=== PATIENT | male | born 1975 | race Two or more races ===

== ENCOUNTER 2018-08-16 14:03 | Emergency (ER) | payer MEDICAID ==
[~2018-08-16] VITALS: Ht 190.5 cm; Wt 72.6 kg
--- NOTE | 2018-08-16 14:22 | NUR ---
ED Nurse Note: Pt came into the ER w/ complaints of head and neck pain 10/ since last night. Pt states that he slipped and fell last night at 1999. Pt states that he hit his head on the pavement. Pt states that he called 911 last night but they did not bring him to the hospital. Pt denies being drunk or on drugs last night when the fall occured. A+O x4. Ambulatory.
[2018-08-16 14:24] VITALS: BP 96/60
[2018-08-16] MEDS ORDERED: Acetaminophen 500mg (ES) tab ORAL ONE (14:30)
[2018-08-16] MEDS ORDERED: Methocarbamol 500mg tab ORAL ONE (14:30)
--- NOTE | 2018-08-16 14:31 | Emergency Room Report ---
History of Present Illness General Chief Complaint: Multiple Trauma/Fall Source: Patient Present Illness HPI 42-year-old male patient presents the ER complaining of head and neck pain status post fall 1 day ago. Patient reports he was walking home last night when he slipped and fell and landed on his neck and head. Denies loss of consciousness, states he is unsure if he lost consciousness. Denies vomiting or vision changes. Denies focal neuro deficits. Denies fever, chest pain, shortness of breath. Reports pain with moving the neck. Denies pain rating down the arms. Denies other acute or aggravating symptoms. Denies syncope or dizziness prior to fall. Denies history of stroke. Allergies: Coded Allergies: KETOROLAC (Verified Allergy, Unknown, 08/16/18) MORPHINE (Verified Allergy, Unknown, 08/16/18) TRAMADOL (Verified Allergy, Unknown, 08/16/18) Patient History Past Medical History: see triage record Reviewed Nursing Documentation: PMH: Agreed; PSxH: Agreed Nursing Documentation-PMH Past Medical History: No History, Except For Review of Systems All Other Systems: negative except mentioned in HPI Physical Exam Vital Signs Date Time Temp Pulse Resp B/P (MAP) Pulse Ox O2 Delivery O2 Flow Rate FiO2 08/16/18 14:07 98.2 71 20 96/60 97 Room Air 08/16/18 14:24 98 Sp02 EP Interpretation: reviewed, normal General Appearance: well appearing, no apparent distress, alert, GCS 15, non- toxic Head: normocephalic, atraumatic, other - Negative love sign, negative raccoon eyes, no skull depression, no laceration Eyes: bilateral eye normal inspection, bilateral eye PERRL ENT: hearing grossly normal, normal pharynx, no angioedema, normal voice, uvula midline, moist mucus membranes Neck: full range of motion, other - no bony depression, tender Respiratory: lungs clear, normal breath sounds, no rhonchi, no respiratory distress, no accessory muscle use, no wheezing, speaking full sentences Cardiovascular #1: regular rate, rhythm, no edema Genitourinary: no CVA tenderness Musculoskeletal: back normal, digits/nails normal, gait/station normal, normal range of motion, non-tender Neurologic: alert, oriented x3, responsive, tubing mill setter III-XII nml as tested, motor strength/tone normal, sensory intact, cerebellar normal, normal gait, speech normal Psychiatric: mood/affect normal Skin: no rash Lymphatic: no adenopathy Medical Decision Making PA Attestation Dr. Vyas is my supervising Physician whom patient management has been discussed with. Diagnostic Impression: Primary Impression: Head injury Additional Impressions: Neck contusion Left maxillary sinusitis ER Course Pt presents to ED c/o head and neck pain status post fall. DDX considered but are not limited to laceration, abrasion, contusion, cellulitis, ICH, skull fracture, concussion, fracture, sprain, strain. VITAL SIGNS are WNL, patient is afebrile ER COURSE: No focal neuro deficits, cranial nerves intact as tested, negative love sign, negative Raccon eyes. CT neck negative CT head negative fo mass-effect, edema, or acute bleed, left maxillary sinusitis noted. Will provide patient with Claritin for sinus symptoms. Will discharge patient home with pain medication, muscle relaxant, lidocaine patch. Advised on rest, ice, heat. Instruct patient to continue to monitor for concussion symptoms. Avoid excessive screen time, return to ER immediately if experience loss consciousness , vision loss, intractable vomiting. Avoid drug use. Drink plenty of fluids. Patient OK for discharge to home. Patient resting comfortably, in no acute distress, nontoxic appearing. ER precautions given. DISCHARGE: At this time pt is stable for d/c to home. Patient resting comfortably, in no acute distress, nontoxic appearing, talking without difficulty. Will provide with patient care instructions and any necessary prescriptions. Patient to take medication as instructed. Care plan and follow-up instructions provided. Patient questions asked and answered. Patient reports understanding and agreement to treatment plan. Patient instructed to followup with PCP to discuss further treatment plan and ability to go to work, ER precautions given. Patient instructed to return to ER immediately for any new or worsening of symptoms. - Please note that this Emergency Department Report was dictated using [employer] campaign manager technology software, occasionally this can lead to erroneous entry secondary to interpretation by the dictation equipment. CT/MRI/US Diagnostic Results CT/MRI/US Diagnostic Results #1: Imaging Test Ordered: CT head Impression No mass-effect, edema, or acute bleed. Left maxillary sinusitis. CT/MRI/US Diagnostic Results #2: Imaging Test Ordered: CT c-spine Impression Negative cervical spine CT Last Vital Signs Date Time Temp Pulse Resp B/P (MAP) Pulse Ox O2 Delivery O2 Flow Rate FiO2 08/16/18 14:24 71 20 Room Air 98 08/16/18 14:24 98.2 96/60 97 Status: improved Disposition: HOME, SELF-CARE Condition: Stable Scripts Loratadine/Pseudoephedrine (CLARITIN-D 12 HOUR TABLET) 1 Each Tab.er.12h 1 TAB ORAL EVERY 12 HOURS, #24 TAB Prov: Felice Ang 08/16/18 Acetaminophen* (TYLENOL EXTRA STRENGTH*) 500 Mg Tablet 500 MG ORAL Q8H PRN for Prn Headache/Temp > 101, #30 TAB 0 Refills Prov: Felice Ang 08/16/18 Methocarbamol* (ROBAXIN*) 500 Mg Tablet 500 MG PO TID, #21 TAB 0 Refills Prov: Felice Ang 08/16/18 Lidocaine (Lidocaine) 1 Each Adh..patch 5 % TP DAILY for 7 Days, #7 PATCH Prov: Felice Ang 08/16/18 Patient Instructions: Contusion, [id number], Head Injury, Adult, [id number] , Sinusitis, Adult, [id number] Additional Instructions: Patient instructed to follow up with primary care provider 3-5 and discuss further referral and imaging at that time. Patient instructed on rest, ice and heat. Do not take muscle relaxant prior to drinking, driving, or operating heavy machinery. Take medications as directed. Patient questions asked and answered. ER precautions given, patient instructed to return to ER immediately for any new or worsening of symptoms. [facility] [address] [facility] [address] [facility], [address] [email or web address] Felice Ang Aug 16, 2018 14:30
--- NOTE | 2018-08-16 14:47 | NUR ---
ED Nurse Note: Pt went down to CT via [facility].
--- NOTE | 2018-08-16 15:06 | NUR ---
ED Nurse Note: Pt came back from radiology.
--- NOTE | 2018-08-16 15:50 | Diagnostic Imaging Report ---
Indication: Headache Technique: Contiguous 5 mm thick transaxial imaging of the head obtained in a Siemens Sensation [address] scanner. Soft tissue and bone windows generated. Automatic Exposure Control was utilized. Total Dose length Product (DLP): 1705.[address] Dose Index Volume (CTDIvol): 70.38,10.94 mGy Comparison: none Findings: The size and configuration of the cortical sulci, basal cisterns, and ventricles are within normal limits for age. There is no mass effect, midline shift, or edema identified. There is no evidence of acute hemorrhage or abnormal intra-axial or extra-axial fluid collections. The bones and soft tissues are unremarkable. There is fluid in the left maxillary sinus presumably due to sinusitis. Impression: No mass effect, edema or acute bleed. Left maxillary sinusitis The CT scanner at [facility] is accredited by the [employer] and the scans are performed using dose optimization techniques as appropriate to a performed exam including Automatic Exposure control.
--- NOTE | 2018-08-16 15:52 | Diagnostic Imaging Report ---
Indication: Neck pain. Technique: Continuous helical imaging of the cervical spine was obtained transaxially from the skull base to the upper thoracic spine. 2-D coronal and sagittal reformatted images were obtained. Automatic Exposure Control was utilized. Total Dose length Product (DLP): 1705.[address] Dose Index Volume (CTDIvol): 70.38,10.94 mGy Comparison: None Findings: There is no evidence of an acute fracture or malalignment. Atlantoaxial alignment appears normal. Height and configuration of the vertebral bodies and intervertebral discs are within normal limits. Uncovertebral joints and facets are unremarkable. There is no soft tissue swelling. Impression: Negative cervical spine CT The CT scanner at [facility] is accredited by the [employer] and the scans are performed using dose optimization techniques as appropriate to a performed exam including Automatic Exposure control.
[2018-08-16] MEDS ORDERED: CLARITIN-D 121 EAC1 ORAL (16:13)
[2018-08-16] MEDS ORDERED: TYLENOL EXTRA500 MG ORAL (16:13)
[2018-08-16] MEDS ORDERED: ROBAXIN500 MG PO (16:13)
[2018-08-16] MEDS ORDERED: LIDOCAINE700 M1 TP (16:13)
--- NOTE | 2018-08-16 16:20 | NUR ---
ED Nurse Note: Offered pt discharge instructions. Pt refused to get discharge paperwork or prescriptions. Pt did not sign discharge paperwork. Then stated "same old shit, different hospital." ID band removed. Pt left ER w/ steady gait and all belongings with daytime babysitter.
[2018-08-16 16:23] VITALS: BP 125/78
== END 2018-08-16 16:20 | disposition home or self-care (01) ==
LOC: EMR 14:36
DX: R51 Headache (principal); S10.93XA Contusion of unspecified part of neck, initial encounter; W01.0XXA Fall on same level from slipping, tripping and stumbling without subsequent striking against object, initial encounter; Y93.01 Activity, walking, marching and hiking; Y92.009 Unspecified place in unspecified non-institutional (private) residence as the place of occurrence of the external cause; Z88.5 Allergy status to narcotic agent; J32.0 Chronic maxillary sinusitis
CPT/HCPCS: 70450; 72125; 99284